=== PATIENT | female | born 1960 | race Two or more races ===

== ENCOUNTER 2024-05-15 13:07 | Emergency (ER) | payer MEDICAID, OTHER ==
[~2024-05-15] VITALS: Ht 154.9 cm; Wt 68.7 kg
[2024-05-15 14:16] LABS: Basophils % (auto) 0.3 % (0.0-2.0); Eosinophils # (auto) 0.1 10 ^3/uL (0-0.8); Lymphocytes # (auto) 2.8 10 ^3/uL (0.4-5.4); Lymphocytes % (auto) 18.6 % (10.0-50.0); Mean Corpuscular Volume 89.6 fL (80.0-100.0)
[2024-05-15 14:17] LABS: Basophils # (auto) 0 10 ^3/uL (0-0.2); Eosinophils % (auto) 0.6 % (0.0-7.0); Hematocrit 35.1 % (36.0-46.0); Mean Corpuscular Hemoglobin 30.6 pg (28.0-32.0); Mean Corpuscular Hgb Conc. 34.1 g/dL (32.0-36.0); Monocytes # (auto) 0.8 10 ^3/uL (0-1.3); Monocytes % (auto) 5.3 % (0.0-12.0); Neutrophils # (auto) 11.4 10 ^3/uL (1.6-8.6); Neutrophils % (auto) 75.2 % (37.0-80.0); Nucleated Red Blood Cells % 0.1 %; Platelet Count (auto) 463 10^3/uL (140-450); Red Blood Cells 3.92 10^6/uL (4.0-5.20); Red Cell Distribution Width 14.2 % (11.8-14.3); White Blood Cell 15.1 10^3/uL (4.4-10.8)
[2024-05-15 14:34] LABS: Alanine Aminotransferase 19 U/L (7-40); Albumin 4.5 g/dL (3.2-4.8); Alkaline Phosphatase 85 U/L (46-116); Anion Gap 9 (5-15); Aspartate Aminotransferase 25 U/L (13-40); BUN/Creatinine Ratio 16.7 (10.0-20.0); Blood Alcohol < 3.0 mg/dL (<10); Blood Urea Nitrogen 13 mg/dL (9-23); Calcium 9.7 mg/dL (8.7-10.4); Carbon Dioxide 25 mmol/L (20-30); Chloride 107 mmol/L (98-107); Glucose 129 mg/dL (74-106); Magnesium 1.3 mg/dL (1.6-2.6); Potassium 4.2 mmol/L (3.5-5.1); Sodium 141 mmol/L (136-145)
[2024-05-15 14:35] LABS: Bilirubin, Total 0.5 mg/dL (0.2-1.0); Total Protein 7.2 g/dL (5.7-8.2)
[2024-05-15 14:47] LABS: INR 0.99 (0.9-1.15); Partial Thromboplastin Time 21.6 SEC (24.5-34.5); Prothrombin Time 10.5 sec (9.3-11.8)
[2024-05-15] MEDS: IOHEXOL 350 MG/ML 100ML IJ ONE (14:48)
[2024-05-15 15:00] VITALS: PULSE 85; RESP 16; O2SAT 95
[2024-05-15 18:31] LABS: Urine Bacteria FEW /hpf (None Seen); Urine Blood 2+ /uL (Negative); Urine Clarity Clear (Clear); Urine Color Yellow (Yellow); Urine Mucus FEW (None Seen); Urine Protein, UAD 1+ (Negative); Urine Urobilinogen Normal (Negative); Urine WBC 46 /hpf (0 - 5); Urine pH 5.5 (5.0-9.0)
[2024-05-15 18:35] LABS: Amphetamine Screen, Urine Neg (NEGATIVE); Barbiturate Scree,Urine Neg (NEGATIVE); Cannabinoid Screen, Urine Neg (NEGATIVE); Cocaine Screen, Urine Neg (NEGATIVE); Opiate Scree,Urine Neg (NEGATIVE); Phencyclidine Screen, Urine Neg (NEGATIVE)
[2024-05-15 18:37] LABS: Benzodiazephine Screen, Urine Neg (NEGATIVE)
[2024-05-15 18:50] LABS: Urine Specific Gravity > 1.035 (1.001-1.035)
[2024-05-15 19:45] VITALS: PULSE 96; RESP 20; O2SAT 98
[2024-05-15] MEDS: cefTRIAXone 1GM/50ML D5W 50 ML IV ONE (21:06)
[2024-05-15 22:41] VITALS: BP 104/70; PULSE 86; RESP 13; TEMP 98.3; O2SAT 97
== END 2024-05-15 22:50 | disposition short-term general hospital (02) ==
LOC: ER 13:07
DX: I63.9 Cerebral infarction, unspecified (principal); R06.02 Shortness of breath; E11.9 Type 2 diabetes mellitus without complications; Z79.899 Other long term (current) drug therapy
CPT/HCPCS: 36415; 70450; 70496; 71045; 80053; 80307; 80320; 81001; 82962; 83735; 83880; 84484; 85025; 85610; 85730; 93005; 96365; 99291; J0696; Q9967